=== PATIENT | male | born 1985 | race Caucasian/White ===

== ENCOUNTER 2022-09-07 14:38 | Emergency (ER) | payer OTHER, SELFPAY ==
[2022-09-07 16:42] VITALS: BP 142/79; PULSE 80; RESP 18; TEMP 36.8; O2SAT 97; BMI 31.7
--- NOTE | 2022-09-07 17:27 | EXP.UTC ---
Discharge Plan Disposition Patient Disposition: Home, Self-Care Condition: Good Prescriptions Prescriptions: New methylprednisolone [Medrol (Jerad)] 4 mg tablets,dose pack 4 mg PO DIRECTED 6 Days Qty: 6 0RF Rx Instructions: 4 mg orally ;Medrol dose taper jerad azithromycin [Zithromax] 250 mg tablet See Rx Instructions .ROUTE .COMPLEX Qty: 6 0RF Rx Instructions: For 250 mg dose pack: take 500 mg today (day 1), then 250 mg for 4 days (days 2-5) albuterol sulfate 90 mcg/actuation HFA aerosol inhaler 2 puff inhalation Q6H PRN (Reason: shortness of breath or wheezing) Qty: 8.5 0RF benzonatate 100 mg capsule 100 mg PO TID PRN (Reason: cough) Qty: 30 0RF Clinical Impressions Clinical Impression: Acute lower respiratory tract infection Instructions Patient Instructions: Acute Bronchitis Discharge ED Provider: Sabrina Pizarro [facility] General Stated complaint: no voice Mode of Arrival: Ambulatory Source of Information: Patient Limitations: No Limitations Time Seen by Provider: 09/07/22 17:26 Description of Symptoms (Recalled from Triage Doc. by RN): pt comes in with c/o loss of voice, painful cough. symptoms began friday HEENT Symptoms (Recalled from RN notes): Yes Resp Symptoms (Recalled from RN notes): Yes Skin Symptoms (Recalled from RN notes): No MS Symptoms (Recalled from RN notes): No Functional Status (Recalled from RN notes): n/a History of Present Illness Provider Complaint: Pt states that sinus sx and cough started on Friday. He reports that he lost his voice on . Pt states that he has been coughing up green and had dark yellow sinus drainage. He denies taking anything for his symptoms. Related Data Previous Rx's Medication Instructions Recorded albuterol sulfate 90 mcg/actuation 2 puff inhalation Q6H PRN 09/07/22 aerosol inhaler shortness of breath or wheezing #8.5 grams azithromycin 250 mg tablet See Rx Instructions PO .COMPLEX #6 09/07/22 (Zithromax) tabs benzonatate 100 mg capsule 100 mg PO TID PRN cough #30 caps 09/07/22 methylprednisolone 4 mg tablets in 4 mg PO DIRECTED 6 days #6 tabs 09/07/22 a dose pack (Medrol (Jerad)) Allergies Allergy/AdvReac Type Severity Reaction Status Date / Time carbamazepine [From Tegretol] Allergy Verified 09/07/22 16:44 Worker's Comp Is this a Worker's Comp case?: No [facility] Disclaimer: The information contained in this section may have been updated after the patient was seen, as this information can be updated by other users. Social History Smoking Status: Current every day smoker alcohol intake: current current occupational status: employed Travel in the last 8 weeks: Inside the [place] ROS Obtained: Yes All systems reviewed & no additional complaints except as documented Constitutional Constitutional: Reports headache(s) and Reports malaise Eyes Eyes: Reports system reviewed and no additional complaints, except as documented ENT Ears, Nose, Mouth, and Throat: Reports change in voice, Reports headache(s), Reports hoarseness, Reports nasal congestion, Reports nasal discharge and Reports sore throat Cardiovascular Cardiovascular: Reports system reviewed and no additional complaints, except as documented Respiratory Respiratory: Reports cough with sputum production Gastrointestinal Gastrointestingal: Reports system reviewed and no additional complaints, except as documented Genitourinary Male Genitourinary: Reports system reviewed and no additional complaints, except as documented Musculoskeletal Musculoskeletal: Reports system reviewed and no additional complaints, except as documented Integumentary/Breasts Skin/Breast: Reports system reviewed and no additional complaints, except as documented Neurologic Neurologic: Reports system reviewed and no additional complaints, except as documented and Reports headache(s) Endocrine Endocrine: Reports system reviewed and no additional complaints, e
[2022-09-07 17:41] VITALS: BP 142/79; PULSE 80; RESP 18; TEMP 36.8
== END 2022-09-07 17:43 | disposition home or self-care (01) ==
PROVIDERS: Emergency Provider Nurse Practitioner Family
DX: J22 Unspecified acute lower respiratory infection (principal)
CPT/HCPCS: 99212; G0463